=== PATIENT | female | born 1995 | race Caucasian/White ===

== ENCOUNTER 2017-05-09 18:27 | Emergency (ER) | payer MEDICAID ==
[2017-05-09] MEDS ORDERED: HYDROcod/ACETAM 5/325 MG TABLET PO STA (18:44)
--- NOTE | 2017-05-09 18:49 | ED Physician Documentation ---
History of Present Illness - Stated complaint Stated Complaint: R SIDE/BACK PX - Chief complaint Chief Complaint: General - History obtained from History obtained from: Patient, Family - History of Present Illness Timing: Other (She got up at work today and felt a pop in the low ribs on the right, mid axillary line that is severe with motion and arm movements.) Review of Systems Constitutional: denies: Fever, Chills Throat: denies: Dental pain / toothache, Sore throat Cardiac: denies: Pedal edema, Calf pain Respiratory: denies: Dyspnea, Cough PD PAST MEDICAL HISTORY - Present Medications Home Medications: Ambulatory Orders Medication Instructions Recorded Confirmed No Known Home Medications [No 05/09/17 05/09/17 Known Home Medications] - Allergies Allergies/Adverse Reactions: Allergies Allergy/AdvReac Type Severity Reaction Status Date / Time No Known Drug Allergies Allergy Verified 05/09/17 18:39 PD ED PE NORMAL - Vitals Vital signs reviewed: Yes - General General: Alert and oriented X 3, Other (She is crying in pain and very anxious) - Neck Neck: Supple, no meningeal sign, No bony TTP - Cardiac Cardiac: RRR, No murmur - Respiratory Respiratory: No respiratory distress, Clear bilaterally, Other (Very tender to about rib 11 or so mid axillary line on the right) - Abdomen Abdomen: Non tender - Extremities Extremities: No edema, No calf tenderness / cord - Neuro Neuro: Alert and oriented X 3, Normal speech Results - Vitals Vitals: Vital Signs - 24 hr 05/09/17 18:36 Temperature 37.0 C Heart Rate 113 H Respiratory 20 Rate Blood Pressure 129/91 H O2 Saturation 100 Oxygen O2 Source Room air - Labs Labs: Laboratory Tests 05/09/17 05/09/17 18:43 18:43 Urine Color YELLOW Urine Clarity CLEAR Urine pH 7.0 Ur Specific [place] 1.015 1.015 Urine Protein NEGATIVE Urine Glucose (UA) NEGATIVE Urine Ketones NEGATIVE Urine Occult Blood NEGATIVE Urine Nitrite NEGATIVE Urine Bilirubin NEGATIVE Urine Urobilinogen 0.2 (NORMAL) Ur Leukocyte Esterase NEGATIVE Ur Microscopic Review NOT INDICATED Urine Culture Comments NOT INDICATED Urine HCG, Qual NEGATIVE - Rads (name of study) R ribs and PA Chest Radiology: EMP read contemporaneously (NAD) PD MEDICAL DECISION MAKING - ED course ED course: On reexamination after a Vicodin and x-rays she was much more comfortable with no respiratory distress and pain was much better. Departure - Departure Disposition: 01 Home, Self Care Clinical Impression: Intercostal muscle strain Qualifiers: Encounter type: initial encounter Qualified Code(s): S29.011A - Strain of muscle and tendon of front wall of thorax, initial encounter Condition: Good Record reviewed to determine appropriate education?: Yes Instructions: ED Strain Chest Wall Ch Comments: Call your doctor to arrange a follow-up appointment, make the next available appointment. In the interim, return anytime if worse or if new symptoms develop. Forms: Activity restrictions
[2017-05-09 18:54] LABS: BILIRUBIN,URINE NEGATIVE (NEGATIVE); GLUCOSE, URINE (UA) NEGATIVE (NEGATIVE); KETONES,URINE (UA) NEGATIVE (NEGATIVE); LEUKOCYTE ESTERASE, URINE NEGATIVE (NEGATIVE); NITRITE,URINE NEGATIVE (NEGATIVE); OCCULT BLOOD,URINE NEGATIVE (NEGATIVE); PROTEIN,URINE NEGATIVE (NEGATIVE); UROBILINOGEN,URINE 0.2 (NORMAL) E.U./dL (NORMAL)
[2017-05-09 18:57] LABS: CLARITY,URINE CLEAR (CLEAR)
[2017-05-09 18:58] LABS: HCG UR QUAL NEGATIVE
--- NOTE | 2017-05-09 19:43 | XRAY Preliminary Report ---
Exam: XR RIBS W/PA CHEST RT IMPRESSION: Normal chest and rib radiography. [facility] SITE ID: [id number]
--- NOTE | 2017-05-09 19:47 | XRAY Report ---
EXAM: RIGHT RIB RADIOGRAPHY EXAM DATE: 05/09/2017 07:14 PM. CLINICAL HISTORY: Right lateral lower rib pain. COMPARISON: None. TECHNIQUE: 1 view of the chest and 2 views of the ribs. FINDINGS: Bones: Normal. No fracture or bone lesion. A marker was placed in the area of concern. This correspon ds to the lateral most aspects of the right 10th, 11th and 12th ribs. Lungs: No focal opacities. No pneumothorax. No pleural effusions. Mediastinum: Heart and mediastinal contours are unremarkable. Other: None. IMPRESSION: Normal chest and rib radiography. [facility] Referring Provider Line: [phone] SITE ID: [id number]
[2017-05-09] MEDS ORDERED: HYDROcod/ACET 5/325 Prepack 6 PO STA (19:52)
[2017-05-09 20:02] VITALS: BP 141/94
== END 2017-05-09 20:00 | disposition home or self-care (01) ==
LOC: ED 18:27
DX: S29.011A Strain of muscle and tendon of front wall of thorax, initial encounter (principal); X50.9XXA Other and unspecified overexertion or strenuous movements or postures, initial encounter; Y92.89 Other specified places as the place of occurrence of the external cause; Y99.0 Civilian activity done for income or pay
CPT/HCPCS: 71101; 81003; 81025; 99283; 99284; A9270; 81001; 87086

== ENCOUNTER 2017-07-22 23:32 | Outpatient (CLI) | payer MEDICAID ==
[2017-07-22 19:07] LABS: % IRON SATURATION 24 % (20-50); ALBUMIN 4.1 g/dL (3.2-5.5); ALBUMIN/GLOBULIN RATIO 1.2 (1.0-2.2); ALKALINE PHOSPHATASE 65 IU/L (42-121); ALT ALANINE AMINOTRANSFERASE 14 IU/L (10-60); AST ASPARTATE AMINOTRANSFERASE 20 IU/L (10-42); BUN - BLOOD UREA NITROGEN 9 mg/dL (6-20); CALCIUM 9.1 mg/dL (8.5-10.3); CARBON DIOXIDE - CO2 24 mmol/L (21-32); CHLORIDE 107 mmol/L (101-111); CREATININE 0.6 mg/dL (0.4-1.0); GFR - MDRD 127 (>89); GLUCOSE 83 mg/dL (70-100); IRON 103 ug/dL (28-170); SODIUM 138 mmol/L (135-145); TOTAL IRON BINDING CAPACITY 435 ug/dL (250-450); TOTAL PROTEIN 7.4 g/dL (6.7-8.2); TRANSFERRIN 311 mg/dL (192-382)
[2017-07-22 19:13] LABS: THYROID STIMULATING HORMONE 0.9 uIU/mL (0.34-5.60)
[2017-07-22 19:15] LABS: BASOPHILS # (AUTO) 0.1 10^3/uL (0.0-0.1); BASOPHILS % (AUTO) 0.8 %; EOSINOPHILS # (AUTO) 0.2 10^3/uL (0.0-0.7); HGB - HEMOGLOBIN 11.2 g/dL (12.0-16.0); LYMPHOCYTES % (AUTO) 37.1 %; MEAN CORPUSCULAR HEMOGLOBIN 26.3 pg (27.0-31.0); MEAN CORPUSCULAR HGB CONC 32.2 g/dL (32.0-36.0); MEAN CORPUSCULAR VOLUME 81.5 fL (81.0-99.0); MEAN PLATELET VOLUME 8.4 fL (7.9-10.8); MONOCYTES # (AUTO) 0.5 10^3/uL (0.0-1.0); NEUTROPHILS # (AUTO) 4.3 10^3/uL (1.5-6.6); NEUTROPHILS % (AUTO) 54.1 %; PLT - PLATELET COUNT 282 10^3/uL (130-450); RED BLOOD COUNT 4.26 10^6/uL (4.20-5.40); RED CELL DISTRIBUTION WIDTH 13.5 % (12.0-15.0)
[2017-07-22 19:20] LABS: FERRITIN 25.1 ng/mL (11.0-306.8)
[2017-07-22 19:24] LABS: FOLATE 16.38 ng/mL (5.90 - >24.8)
== END 2017-07-22 23:33 | disposition home or self-care (01) ==
LOC: LAB.N 23:32
PROVIDERS: ATTEND Nurse Practitioner
DX: E55.9 Vitamin D deficiency, unspecified (principal); L67.9 Hair color and hair shaft abnormality, unspecified; R53.82 Chronic fatigue, unspecified
CPT/HCPCS: 36415; 80053; 82306; 82607; 82728; 82746; 83540; 84443; 84466; 85025

== ENCOUNTER 2017-09-05 22:50 | Emergency (ER) | payer OTHER, MEDICAID ==
--- NOTE | 2017-09-05 23:49 | ED Physician Documentation ---
PD HPI CHEST PAIN - Stated complaint Stated Complaint: RIB PX - Chief complaint Chief Complaint: Abd Pain - History obtained from History obtained from: Patient - History of Present Illness Timing - onset: Today (jodie) Timing - details: Abrupt onset Quality: Pain Location: Right chest Improved by: Rest Worsened by: Movement Associated symptoms: No: Shortness of air Similar symptoms before: Other (similar symptoms in same location April 2017, T+R from this ED after xrays (chest, ribs) were unremarkable. 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 patient was not struck in this area Review of Systems Cardiac: reports: Chest pain / pressure (right chest wall/rib pain) Respiratory: reports: Reviewed and negative GI: reports: Reviewed and negative PD PAST MEDICAL HISTORY - Past Medical History Past Medical History: No Psych: Other - Past Surgical History Past Surgical History: No - Present Medications Home Medications: Ambulatory Orders Medication Instructions Recorded Confirmed Fluoxetine HCl [Prozac] 1 cap PO DAILY 09/05/17 09/05/17 - Allergies Allergies/Adverse Reactions: Allergies Allergy/AdvReac Type Severity Reaction Status Date / Time No Known Drug Allergies Allergy Verified 05/09/17 18:39 - Social History Does the pt smoke?: No Smoking Status: Never smoker Does the pt drink ETOH?: No Does the pt have substance abuse?: No - Immunizations Immunizations are current?: No Immunizations: TDAP >10years/unknown PD ED PE NORMAL - Vitals Vital signs reviewed: Yes - General General: Alert and oriented X 3, Well developed/nourished, Other (waxing and waning painful discomfort; cries at times due to pain, but appears comfortable at other times) - Cardiac Cardiac: RRR, No murmur - Respiratory Respiratory: No respiratory distress, Clear bilaterally - Abdomen Abdomen: Soft, Non tender - Free text exam Free text exam: right anterior low ribs TTP without crepitus or echymosis Results - Vitals Vitals: Vital Signs - 24 hr 09/05/17 09/05/17 09/06/17 22:58 23:37 00:22 Temperature 36.0 C L Heart Rate 67 92 65 Respiratory 18 22 20 Rate Blood Pressure 128/81 H 113/83 H 129/76 O2 Saturation 100 100 100 Oxygen O2 Source Room air PD MEDICAL DECISION MAKING - ED course Complexity details: reviewed old records, considered differential, d/w patient ED course: no direct injury (not struck and patient's body did not strike against anything) . mechanism is s/o muscular sprain/strain. no testing performed at this time, given vicodin, flexeril, take-home packs for same, and work excuse Departure - Departure Disposition: Home, Self Care Clinical Impression: Intercostal muscle strain Qualifiers: Encounter type: initial encounter Qualified Code(s): S29.011A - Strain of muscle and tendon of front wall of thorax, initial encounter Condition: Good Instructions: ED Chest Pain NonCardiac, ED Strain Abdominal Muscle Follow-Up: Fidelia Esposito DNP [Primary Care Provider] - (3-5 days if symptoms persist) Forms: Activity restrictions Discharge Date/Time: 09/06/17 00:25
[2017-09-06] MEDS ORDERED: CYCLOBENZAPRINE 10 MG TABLET PO STA (00:07)
[2017-09-06] MEDS ORDERED: HYDROcod/ACET 5/325 Prepack 4 PO STA (00:07)
[2017-09-06] MEDS ORDERED: HYDROcod/ACETAM 5/325 MG TABLET ONE (00:08)
[2017-09-06] MEDS ORDERED: CYCLOBENZAPRINE 10 MG Prepack 2 PO PRN (00:08)
[2017-09-06] MEDS ORDERED: HYDROcod/ACETAM 5/325 MG TABLET PO STA (00:10)
[2017-09-06 00:22] VITALS: BP 129/76
== END 2017-09-06 00:25 | disposition home or self-care (01) ==
LOC: ED 22:50
DX: S29.011A Strain of muscle and tendon of front wall of thorax, initial encounter (principal); W03.XXXA Other fall on same level due to collision with another person, initial encounter; Y93.F9 Activity, other caregiving; Y99.0 Civilian activity done for income or pay
CPT/HCPCS: 99283; A9270; 1040M

== ENCOUNTER 2017-11-03 22:23 | Emergency (ER) | payer OTHER, MEDICAID ==
[2017-11-03] MEDS ORDERED: ACETAMINOPHEN 325 MG TABLET PO STA (22:40)
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
--- NOTE | 2017-11-03 23:21 | XRAY Report ---
Procedure Date: 11/03/2017 Accession Number: [id number] / [id number] Procedure: XR - Forearm LT CPT Code: FULL RESULT: EXAM: LEFT FOREARM RADIOGRAPHY EXAM DATE: 11/03/2017 11:02 PM. CLINICAL HISTORY: Arm inj. COMPARISON: None. TECHNIQUE: 2 views. FINDINGS: Bones: Normal. No fractures or bone lesions. Joints: Normal. No effusions or subluxations in the visualized wrist or elbow joints. Soft Tissues: Normal. No soft tissue swelling. IMPRESSION: Normal forearm radiography. [facility]
[2017-11-03 23:30] VITALS: BP 133/75
== END 2017-11-03 23:20 | disposition home or self-care (01) ==
LOC: ED 22:23
DX: S50.12XA Contusion of left forearm, initial encounter (principal); Y04.2XXA Assault by strike against or bumped into by another person, initial encounter; Y93.F9 Activity, other caregiving; Y92.099 Unspecified place in other non-institutional residence as the place of occurrence of the external cause; Y99.0 Civilian activity done for income or pay; R03.0 Elevated blood-pressure reading, without diagnosis of hypertension
CPT/HCPCS: 73090; 99282; 99283; A9270

== ENCOUNTER 2018-02-28 23:20 | Emergency (ER) | payer MEDICAID ==
[2018-02-28 23:27] VITALS: BP 135/92
--- NOTE | 2018-02-28 23:55 | XRAY Report ---
Reason: GLF, injury to L wrist Procedure Date: 02/28/2018 Accession Number: [id number] / [id number] Procedure: XR - Wrist 3 View LT CPT Code: FULL RESULT: EXAM: LEFT WRIST RADIOGRAPHY EXAM DATE: 02/28/2018 11:31 PM. CLINICAL HISTORY: GLF, injury to L wrist. COMPARISON: FOREARM LT 11/03/2017 10:52 PM. TECHNIQUE: 3 views. FINDINGS: Bones: No fracture seen. Joints: No dislocation. Joint spaces appear intact. Soft Tissues: Mild soft tissue swelling. IMPRESSION: 1. No acute fracture or dislocation seen in the wrist. [facility]
--- NOTE | 2018-03-01 | ED Physician Documentation ---
PD HPI UPPER EXT INJURY - Stated complaint Stated Complaint: GLF/LT WRIST INJ - Chief complaint Chief Complaint: Trauma Ext - History obtained from History obtained from: Patient, Family - History of Present Illness Location: Left, Wrist Type of injury: Fall Where injury occurred: Home Timing - onset: Today Timing - duration: Minutes Timing - details: Abrupt onset, Still present Improved by: Rest, Immobilization Worsened by: Moving, Palpating Associated symptoms: No: Weakness, Numbness, Tingling, Swelling Contributing factors: No: Anticoagulated Similar symptoms before: Diagnosis (forearm contusion) Recently seen: Not recently seen - Additonal information Additional information: 22-year-old female was out side today when she fell onto her left wrist. She states that she fell with her hand folded underneath her and flexed at the wrist. She immediately used her hand to push herself back up and had acute pain associated with this on the volar surface of the wrist. Review of Systems Constitutional: denies: Fever Eyes: denies: Decreased vision Ears: denies: Ear pain Nose: denies: Rhinorrhea / runny nose, Congestion Respiratory: denies: Cough GI: denies: Vomiting Musculoskeletal: reports: Extremity pain, Joint pain. 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 : None HEENT: None Psych: Other Musculoskeletal: None Derm: None - Past Surgical History Past Surgical History: No - Present Medications Home Medications: Ambulatory Orders Medication Instructions Recorded Confirmed Fluoxetine HCl [Prozac] 1 cap PO DAILY 09/05/17 02/28/18 - Allergies Allergies/Adverse Reactions: Allergies Allergy/AdvReac Type Severity Reaction Status Date / Time No Known Drug Allergies Allergy Verified 02/28/18 23:27 - Social History Does the pt smoke?: No Smoking Status: Never smoker Does the pt drink ETOH?: No Does the pt have substance abuse?: No - Immunizations Immunizations are current?: No Immunizations: TDAP >10years/unknown - POLST Patient has POLST: No PD ED PE NORMAL - Vitals Vital signs reviewed: Yes (hypertensive diastolic ) - General General: Alert and oriented X 3, Well developed/nourished, Other (The patient has dramatic pain behavior with inspection of the wrist. 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 No acute fracture or disloca tion seen in the wrist.), EMP read indepedently, See rad report Procedures - Splint (location) left wrist Splint applied by: Tech Type of splint: Fiberglass, Volar cock up Other: Patient tolerated well, No complications, Neurovascular intact, Good alignment PD MEDICAL DECISION MAKING - ED course Complexity details: reviewed results, re-evaluated patient, considered differential, d/w patient, d/w family ED course: 22-year-old female with a fall onto her left hand has a left wrist sprain and is placed into a fiberglass cock-up splint. Departure - Departure Disposition: 01 Home, Self Care Clinical Impression: Left wrist sprain Qualifiers: Encounter type: initial encounter Qualified Code(s): S63.502A - Unspecified sprain of left wrist, initial encounter Condition: Stable Instructions: ED Sprain Wrist Follow-Up: [facility] [Provider Group]
== END 2018-03-01 00:10 | disposition home or self-care (01) ==
LOC: ED 23:20
DX: S63.502A Unspecified sprain of left wrist, initial encounter (principal); W01.0XXA Fall on same level from slipping, tripping and stumbling without subsequent striking against object, initial encounter; Y93.01 Activity, walking, marching and hiking; Y92.009 Unspecified place in unspecified non-institutional (private) residence as the place of occurrence of the external cause
CPT/HCPCS: 29125; 99282; 99283